=== PATIENT | female | born 1940 | race Caucasian/White ===

== ENCOUNTER 2023-05-03 12:40 | Inpatient (IN) | payer BC ==
[~2023-05-03] VITALS: Ht 152.4 cm; Wt 70.5 kg
[2023-05-03] MEDS ORDERED: iohexol 350MG/ML 100ml bottle IV ONE (12:45)
[2023-05-03 13:11] LABS: BASOPHILS % (AUTO) 0.7 % (0-1); EOSINOPHILS # (AUTO) 0.1 X10'3 (0-0.9); EOSINOPHILS % (AUTO) 4.2 % (0-6); HEMATOCRIT 33.9 % (35.0-45.0); HEMOGLOBIN 10.9 g/dl (12.0-16.0); LYMPHOCYTES # (AUTO) 0.6 X10'3 (1.1-4.8); LYMPHOCYTES % (AUTO) 21.4 % (21-51); MEAN CORPUSCULAR HEMOGLOBIN 30.5 PG (27.0-31.0); MEAN CORPUSCULAR HGB CONC 32.3 g/dL (33.0-36.5); MEAN CORPUSCULAR VOLUME 94.3 FL (78-98); MEAN PLATELET VOLUME 9.3 FL (7.4-10.4); MONOCYTES # (AUTO) 0.3 X10'3 (0-0.9); MONOCYTES % (AUTO) 9.8 % (2-12); NEUTROPHILS # (AUTO) 1.8 X10'3 (1.8-7.7); NEUTROPHILS % (AUTO) 63.9 % (42-75); PLATELET COUNT 59 X10'3 (140-440); RED BLOOD COUNT 3.59 X10'6 (4.20-5.60); RED CELL DISTRIBUTION WIDTH 14.5 % (11.5-14.5); WHITE BLOOD COUNT 2.8 X10'3 (4.5-11.0)
[2023-05-03 13:23] LABS: APTT 26 SECONDS (22-32); INR 1.1 INR; PROTHROMBIN TIME 12.1 SECONDS (9.0-12.0)
[2023-05-03 13:25] LABS: ALANINE AMINOTRANSFERASE 17 U/L (12-78); ALBUMIN 3.3 G/DL (3.4-5.0); ALKALINE PHOSPHATASE 44 IU/L (46-116); ANION GAP 8 (8-16); ASPARTATE AMINO TRANSFERASE 19 U/L (10-37); BILIRUBIN,TOTAL 0.7 MG/DL (0.1-1.0); BLOOD UREA NITROGEN 33 MG/DL (7-18); BUN/CREATININE RATIO 21.9 (10.0-20.0); CALCIUM 8.9 MG/DL (8.5-10.1); CHLORIDE 105 MMOL/L (99-107); CREATININE 1.51 MG/DL (0.40-0.90); GLUCOSE 185 MG/DL (70-104); SODIUM 138 MMOL/L (135-145); TOTAL CARBON DIOXIDE 25.1 MMOL/L (24-32); TOTAL PROTEIN 6.5 G/DL (6.4-8.2); eCRCL 20 ML/MIN; eGFR 33 ML/MIN
[2023-05-03] MEDS ORDERED: normal saline 1000ml 1,000 ML IV SCH (13:40)
[2023-05-03] MEDS ORDERED: clopidogrel 300mg tablet PO ONE (13:45)
[2023-05-03] MEDS ORDERED: aspirin 325mg tablet PO ONE (13:45)
[2023-05-03] MEDS ORDERED: HYDROcodone/acetaminophen 10/325mg tab PO PRN (14:15)
[2023-05-03] MEDS ORDERED: morphine 2 MG/ML inj. syringe IV PRN ×2 (14:15)
[2023-05-03] MEDS ORDERED: potassium Cl 40MEQ/1/2NS 520ml 520 ML IV PRN (14:15)
[2023-05-03] MEDS ORDERED: ondansetron/PF 4mg/2ml inj IV PRN (14:15)
[2023-05-03] MEDS ORDERED: magnesium 4gm in 100ml NS 100 ML IV PRN (14:15)
[2023-05-03] MEDS ORDERED: mag hydrox/Alum hydrox/simeth 30ml oral suspension PO PRN (14:15)
[2023-05-03] MEDS ORDERED: magnesium hydroxide 30ml (MOM) UD suspension PO PRN (14:15)
[2023-05-03] MEDS ORDERED: magnesium 2GM in 50ml NS 50 ML IV PRN (14:15)
[2023-05-03] MEDS ORDERED: magnesium Cl slow-release 64mg tablet PO PRN (14:15)
[2023-05-03] MEDS ORDERED: acetaminophen 325mg tablet PO PRN ×2 (14:15)
[2023-05-03] MEDS ORDERED: potassium Cl 20 mEq SR tablet PO PRN ×2 (14:15)
[2023-05-03 14:31] LABS: TOTAL CELLS COUNTED 100
[2023-05-03 14:32] LABS: PLATELET ESTIMATE DECREASED
[2023-05-03 14:33] LABS: POIKILOCYTOSIS FEW; POLYCHROMASIA FEW
[2023-05-03] MEDS: atorvastatin 20mg tablet PO SCH (14:56)
[2023-05-03] MEDS ORDERED: dextrose 50%-water 50ml dispensing syringe IV PRN ×2 (15:50)
[2023-05-03] MEDS ORDERED: MESSAGE TO PHARMACY PO ONE (15:50)
[2023-05-03] MEDS ORDERED: glucagon, human recombinant 1mg kit SUBCUT PRN (15:50)
[2023-05-03] MEDS ORDERED: DEXTROSE 15 GM of carb/4 tabs (each vial/BOTTLE has 4 tablets) PO PRN ×2 (15:50)
[2023-05-03] MEDS ORDERED: insulin Lispro (HumaLOG) vial - multi-dose SQ SCH (15:50)
[2023-05-03 15:55] LABS: URINE AMPHETAMINE SCREEN NEGATIVE (Neg); URINE BARBITUATE SCREEN NEGATIVE (Neg); URINE BENZODIAZEPINES SCREEN NEGATIVE (Neg); URINE CANNABINOID SCREEN NEGATIVE (Neg); URINE COCAINE SCREEN NEGATIVE (Neg); URINE METHADONE SCREEN NEGATIVE (Neg); URINE OPIATE SCREEN NEGATIVE (Neg); URINE PHENCYCLIDINE SCREEN NEGATIVE (Neg)
[2023-05-03 20:00] VITALS: BP 182/67; PULSE 53; RESP 14; TEMP 98; O2SAT 97
[2023-05-03] MEDS: K and/or MAG REPLACEMENT MC SCH (20:00)
[2023-05-03] MEDS ORDERED: insulin glargine (Lantus) pen - multi-dose SQ SCH (21:00)
[2023-05-03] MEDS: docusate sod 100mg capsule PO SCH (21:00)
[2023-05-03] MEDS ORDERED: METF-1203 PO (21:03)
[2023-05-03] MEDS ORDERED: LOSA100T58 PO (21:03)
[2023-05-03] MEDS ORDERED: TIMO5DRO15 EACHEYE (21:03)
[2023-05-03] MEDS ORDERED: LOVA40TA2 PO (21:03)
[2023-05-03] MEDS ORDERED: TERA5CAP4 PO (21:03)
[2023-05-03] MEDS ORDERED: HYDR12.55 PO (21:03)
[2023-05-03] MEDS ORDERED: ATEN50TA8 PO (21:03)
[2023-05-03 22:00] VITALS: BP 184/56; PULSE 52; RESP 16; TEMP 97.8; O2SAT 97
[2023-05-03] MEDS: terazosin 5mg capsule PO SCH (23:49)
[2023-05-03 23:50] VITALS: BP 188/47; PULSE 50; RESP 14; O2SAT 96
[2023-05-04 02:00] VITALS: BP 142/73; PULSE 46; RESP 15; TEMP 98; O2SAT 95
[2023-05-04] MEDS: HYDROcodone/acetaminophen 5mg/325mg tablet PO PRN ×2 (03:58→05:44)
[2023-05-04 06:00] VITALS: BP 105/52; PULSE 55; RESP 16; TEMP 97.5
[2023-05-04 06:19] LABS: BASOPHILS % (AUTO) 0.6 % (0-1); EOSINOPHILS # (AUTO) 0.1 X10'3 (0-0.9); HEMATOCRIT 28.7 % (35.0-45.0); HEMOGLOBIN 9.5 g/dl (12.0-16.0); LYMPHOCYTES # (AUTO) 0.6 X10'3 (1.1-4.8); LYMPHOCYTES % (AUTO) 29.6 % (21-51); MEAN CORPUSCULAR HGB CONC 33.2 g/dL (33.0-36.5); MEAN CORPUSCULAR VOLUME 93.2 FL (78-98); MEAN PLATELET VOLUME 8.5 FL (7.4-10.4); MONOCYTES # (AUTO) 0.2 X10'3 (0-0.9); MONOCYTES % (AUTO) 8.5 % (2-12); NEUTROPHILS # (AUTO) 1.2 X10'3 (1.8-7.7); NEUTROPHILS % (AUTO) 57.3 % (42-75); RED BLOOD COUNT 3.08 X10'6 (4.20-5.60); RED CELL DISTRIBUTION WIDTH 14.5 % (11.5-14.5)
[2023-05-04 06:25] LABS: APTT 28 SECONDS (22-32); INR 1.2 INR; PROTHROMBIN TIME 12.3 SECONDS (9.0-12.0)
[2023-05-04 06:32] LABS: ALANINE AMINOTRANSFERASE 11 U/L (12-78); ALBUMIN 2.9 G/DL (3.4-5.0); ALBUMIN/GLOBULIN RATIO 1.1 (1.1-1.5); ALKALINE PHOSPHATASE 40 IU/L (46-116); ANION GAP 9 (8-16); ASPARTATE AMINO TRANSFERASE 19 U/L (10-37); BILIRUBIN,TOTAL 0.5 MG/DL (0.1-1.0); BLOOD UREA NITROGEN 33 MG/DL (7-18); BUN/CREATININE RATIO 26.8 (10.0-20.0); CALCIUM 8.2 MG/DL (8.5-10.1); CHLORIDE 107 MMOL/L (99-107); CHOL/HDL RATIO 1.7 (0.00-4.99); CHOLESTEROL 109 MG/DL (0-200); CREATININE 1.23 MG/DL (0.40-0.90); GLUCOSE 91 MG/DL (70-104); HDL CHOLESTEROL 64 MG/DL (35-60); LDL CHOLESTEROL 37 MG/DL (50-100); MAGNESIUM 1.7 MG/DL (1.5-2.4); PHOSPHORUS 4.3 MG/DL (2.3-4.5); POTASSIUM 4.2 MMOL/L (3.5-5.1); SODIUM 142 MMOL/L (135-145); TOTAL CARBON DIOXIDE 25.8 MMOL/L (24-32); TOTAL PROTEIN 5.5 G/DL (6.4-8.2); TRIGLYCERIDES 65 MG/DL (20-135); eCRCL 25 ML/MIN; eGFR 42 ML/MIN
[2023-05-04 06:46] LABS: PLATELET COUNT 47 X10'3 (140-440)
[2023-05-04 07:10] LABS: PLATELET ESTIMATE DECREASED; TOTAL CELLS COUNTED 100
[2023-05-04 07:11] LABS: ELLIPTOCYTES FEW
[2023-05-04 07:12] LABS: POIKILOCYTOSIS FEW
[2023-05-04] MEDS ORDERED: pantoprazole 40mg Tablet.DR PO SCH (07:30)
[2023-05-04] MEDS: terazosin 5mg capsule PO SCH (07:39)
[2023-05-04] MEDS: atorvastatin 20mg tablet PO SCH (07:39)
[2023-05-04] MEDS: docusate sod 100mg capsule PO SCH (07:40)
[2023-05-04] MEDS: K and/or MAG REPLACEMENT MC SCH (07:42)
[2023-05-04] MEDS ORDERED: HYDROchlorothiazide 12.5mg capsule PO SCH (08:00)
[2023-05-04] MEDS ORDERED: atenolol 25mg tablet PO SCH (08:00)
[2023-05-04] MEDS ORDERED: losartan 50mg tablet PO SCH (08:00)
[2023-05-04] MEDS ORDERED: timolol 0.5% ophthalmic solution 5ml bottle EACHEYE SCH (08:00)
[2023-05-04] MEDS ORDERED: clopidogrel 75mg tablet PO SCH (08:00)
[2023-05-04] MEDS ORDERED: aspirin 81mg, enteric-coated 1 TAB TABLET.DR PO SCH (08:00)
[2023-05-04] MEDS ORDERED: atorvastatin 10mg tablet PO SCH (08:00)
[2023-05-04] MEDS ORDERED: FLU VACC QS2023-24(6MOS UP)/PF 60 MCG/0.5 ML SYRINGE IM ONE (10:00)
[2023-05-04] MEDS ORDERED: ASPI-1071 PO (10:36)
[2023-05-04] MEDS ORDERED: CLOP75TA34 PO (10:36)
[2023-05-04 11:00] VITALS: BP 144/43; PULSE 45; RESP 12; TEMP 97.3; O2SAT 95
== END 2023-05-04 13:40 | disposition home or self-care (01) | DRG 69 ==
LOC: ER 12:42 → ED HOLD 15:02 → EDBEDREQ 19:54 → PCU 3S 20:15
PROVIDERS: ADMIT Internal Medicine; ATTEND Internal Medicine
PROC: B3251ZZ Computerized Tomography (CT Scan) of Bilateral Common Carotid Arteries using Low Osmolar Contrast (ICD-10-PCS; principal; 2023-05-03)
PROC: B32G1ZZ Computerized Tomography (CT Scan) of Bilateral Vertebral Arteries using Low Osmolar Contrast (ICD-10-PCS; 2023-05-03)
PROC: B32R1ZZ Computerized Tomography (CT Scan) of Intracranial Arteries using Low Osmolar Contrast (ICD-10-PCS; 2023-05-03)
PROC: B3281ZZ Computerized Tomography (CT Scan) of Bilateral Internal Carotid Arteries using Low Osmolar Contrast (ICD-10-PCS; 2023-05-03)
DX: G45.9 Transient cerebral ischemic attack, unspecified (principal); N17.0 Acute kidney failure with tubular necrosis; D61.818 Other pancytopenia; E86.0 Dehydration; G89.29 Other chronic pain; E78.5 Hyperlipidemia, unspecified; R00.1 Bradycardia, unspecified; E11.22 Type 2 diabetes mellitus with diabetic chronic kidney disease; M16.0 Bilateral primary osteoarthritis of hip; I12.9 Hypertensive chronic kidney disease with stage 1 through stage 4 chronic kidney disease, or unspecified chronic kidney disease; N18.30 Chronic kidney disease, stage 3 unspecified; M54.2 Cervicalgia; Z90.49 Acquired absence of other specified parts of digestive tract
CPT/HCPCS: 36415; 70450; 70496; 70498; 70551; 71045; 80053; 80061; 80305; 82948; 83036; 83735; 84100; 85007; 85025; 85610; 85730; 86885; 86900; 86901; 87081; 90686; 93306; 99285; G0378; J1815; J3490; J7030; Q9967